=== PATIENT | female | born 1990 | race American Indian/Alaskan Native ===

== ENCOUNTER 2020-09-25 21:29 | Emergency (ER) | payer MEDICAID ==
[2020-09-25 22:26] VITALS: BP 123/78
--- NOTE | 2020-09-26 01:19 | Emergency Department Report ---
ED General Adult HPI - General Chief complaint: Skin/Abscess/Foreign Body Stated complaint: TAMPON STUCK IN VAGINA Time Seen by Provider: 09/26/20 01:07 Source: patient Mode of arrival: Ambulatory Limitations: No Limitations - History of Present Illness Initial comments: 30-year-old female patient presents emergency department with complaints of vaginal retained foreign body. Patient states she inserted a tampon 2 days ago and has been unable to retrieve it. She has not had sexual intercourse since inserting the tampon. Denies fever, chills, abdominal pain, vaginal bleeding, nausea, vomiting. Denies all other complaints at this time. - Related Data Allergies Allergy/AdvReac Type Severity Reaction Status Date / Time No Known Allergies Allergy Unverified 09/25/20 22:45 ED Review of Systems ROS: Stated complaint: TAMPON STUCK IN VAGINA Other details as noted in HPI Other: GENERAL: Negative for fever, chills, weight change, anorexia, fatigue. ENT: Negative for ear pain, difficulty hearing, sore throat, nasal congestion, epistaxis. CARDIOVASCULAR: Negative for chest pain, palpitations, lower extremity swelling. PULMONARY: Negative for cough, dyspnea, wheezing, orthopnea, cyanosis. GASTROINTESTINAL: Negative for abdominal pain, nausea, vomiting, diarrhea, constipation. GENITOURINARY: Positive for vaginal foreign body. MUSCULOSKELETAL: Negative for joint pain, joint swelling, myalgias, back pain, neck pain. NEUROLOGICAL: Negative for headache, seizure, syncope, paresthesias, weakness. INTEGUMENTARY: Negative for erythema, rash, diaphoresis, laceration, ecchymosis. HEMATOLOGICAL: Negative for hemoptysis, hematemesis, hematochezia, hematuria. PSYCHIATRIC: Negative for hallucinations, suicidal ideation, homicidal ideation, anxiety, depression. ED Past Medical Hx - Past Medical History Previous Medical History?: No - Surgical History Past Surgical History?: No - Social History Smoking Status: Current Every Day Smoker Substance Use Type: Alcohol ED Physical Exam - General Limitations: No Limitations - Other Other exam information: General: Awake, appropriately interactive, no acute distress. Neck: Supple. Full range of motion intact. Cardiovascular: Normal peripheral perfusion. Pulmonary: No respiratory distress. Patient is speaking normally without use of accessory muscles. Pelvic: Female dining room busser (KESHA Luz) present. Normal external inspection. Cervical os is closed. Retained tampon visualized. Skin: No apparent rashes or lesions. Neurological: No facial asymmetry. Speech is clear. Follows commands. Patient is alert and oriented. Musculoskeletal: Moves all four extremities spontaneously with normal range of motion. Psych: Cooperative. Appropriate mood and affect. ED Course Vital Signs 09/25/20 22:24 Temperature 98.5 F Pulse Rate 86 Respiratory 18 Rate Blood Pressure 123/78 O2 Sat by Pulse 100 Oximetry - Procedure Description Procedures done: Verbal consent was obtained from the patient. Patient was placed in the lithotomy position. Speculum was used for visualization. Retai cee foreign body (tampon) extracted from vaginal canal using plastic forceps. Patient tolerated procedure well without complications. Female dining room busser (KESHA Luz) present for duration of procedure. ED Medical Decision Making - Medical Decision Making Patient presents emergency department requesting removal of vaginal foreign body. Tampon removed without complications. See procedure note for details. No clinical evidence to suggest toxic shock syndrome warranting further diagnostic work-up/treatment on an emergent basis. Patient has been instructed to follow-up with her assembler for puller over machine and return to the emergency department for new or worsening symptoms. Patient expressed understanding is agreeable to plan of care. Repeat exam is unremarkable and benign. History, exam, diagnostic testing, and current condition do not suggest worrisome pathology to warrant further testing, continued ED treatment, admission, or surgical evaluation at this point. Given the low probability of a significant medical illness, it would be more likely to result in harm than benefit to perform further testing at this stage. Discussed findings, presumptive diagnosis, need for follow-up and specific signs/symptoms that should prompt immediate return to the emergency department. Instructions were explained in detail to the patient in addition to giving written discharge information. Patient expressed understanding and was given the opportunity to ask questions, all of which were satisfactorily answered prior to discharge home. Critical care attestation.: If time is entered above; I have spent that time in minutes in the direct care of this critically ill patient, excluding procedure time. ED Disposition Clinical Impression: Retained tampon Qualifiers: Encounter type: initial encounter Qualified Code(s): T19.2XXA - Foreign body in vulva and vagina, initial encounter Disposition: TO HOME OR SELFCARE Is pt being admited?: No Does the pt Need Aspirin: No Condition: Stable Instructions: Vaginal Foreign Body, [id number] Additional Instructions: Follow-up with your assembler for puller over machine this week. Call tomorrow to schedule an appointment. Return to the emergency department immediately for new or worsening symptoms. Referrals: JANENE NAVA MD [Staff Physician] - 3-5 Days Time of Disposition: 01:18
== END 2020-09-26 01:20 | disposition home or self-care (01) ==
LOC: ED 21:29
DX: T19.2XXA Foreign body in vulva and vagina, initial encounter (principal); F17.200 Nicotine dependence, unspecified, uncomplicated; X58.XXXA Exposure to other specified factors, initial encounter; Y93.89 Activity, other specified; Y92.89 Other specified places as the place of occurrence of the external cause; Y99.8 Other external cause status

== ENCOUNTER 2022-01-19 20:51 | Emergency (ER) | payer MEDICAID ==
[2022-01-19 21:26] VITALS: BP 117/79
--- NOTE | 2022-01-20 05:28 | Emergency Department Report ---
ED General Adult HPI - General Chief complaint: Urogenital-Female Stated complaint: TAMPON STUCK IN VAGINA Time Seen by Provider: 01/20/22 04:08 Source: patient Mode of arrival: Ambulatory Limitations: No Limitations - History of Present Illness Initial comments: 31-year-old female with no significant past medical history reports to the ER with reports of possible tampon stuck in her vagina. Patient denies fever patient denies weakness. No abdominal pain. Patient reports no STD concerns. - Related Data Allergies Allergy/AdvReac Type Severity Reaction Status Date / Time No Known Allergies Allergy Unverified 09/25/20 22:45 ED Review of Systems ROS: Stated complaint: TAMPON STUCK IN VAGINA Other details as noted in HPI Comment: All other systems reviewed and negative Genitourinary: other (Foreign body in vaginal area.) ED Past Medical Hx - Past Medical History Previous Medical History?: No - Social History Smoking Status: Current Every Day Smoker Substance Use Type: Alcohol ED Physical Exam - General Limitations: No Limitations General appearance: alert, in no apparent distress - Head Head exam: Present: atraumatic, normocephalic - Eye Eye exam: Present: normal appearance - ENT ENT exam: Present: mucous membranes moist - Neck Neck exam: Present: normal inspection - Respiratory Respiratory exam: Present: normal lung sounds bilaterally. Absent: respiratory distress - Cardiovascular Cardiovascular Exam: Present: regular rate, normal rhythm. Absent: systolic murmur, diastolic murmur, rubs, gallop - GI/Abdominal GI/Abdominal exam: Present: soft, normal bowel sounds - Speculum exam: Present: vaginal discharge (White and brown). Absent: foreign body - Extremities Exam Extremities exam: Present: normal inspection - Back Exam Back exam: Present: normal inspection - Neurological Exam Neurological exam: Present: alert, oriented X3 - Psychiatric Psychiatric exam: Present: normal affect, normal mood - Skin Skin exam: Present: warm, dry, intact, normal color. Absent: rash ED Course Vital Signs 01/19/22 21:24 Temperature 99.1 F Pulse Rate 84 Respiratory 18 Rate Blood Pressure 117/79 [Right] O2 Sat by Pulse 100 Oximetry ED Medical Decision Making - Medical Decision Making 31-year-old female with complaints of tampon stuck in vaginal area. On physical exam no tampon is noted in the vaginal area. No foreign body noted. Female plans examiner was present. Charge nurse. Discharge is noted white with a brown tent. Patient denies any STD concerns. Requesting no testing. Patient informed of vaginal exam findings. Patient informed to follow her primary care provider as well as [employer] [facility] as needed. Patient stable for discharge home. Patient asked again if she has any concerns for STD as she has a current discharge. No odor. Patient reports no concerns. Vital Signs 01/19/22 21:24 Temperature 99.1 F Pulse Rate 84 Respiratory 18 Rate Blood Pressure 117/79 [Right] O2 Sat by Pulse 100 Oximetry Critical care attestation.: If time is entered above; I have spent that time in minutes in the direct care of this critically ill patient, excluding procedure time. ED Disposition Clinical Impression: Vaginal discharge Disposition: LEFT WITHOUT BEING SEEN Is pt being admited?: No Condition: Stable Referrals: INDIA OROSCO MD [Primary Care Provider] - 3-5 Days
== END 2022-01-20 04:08 | disposition left against medical advice (07) ==
LOC: ED 20:51
DX: N89.8 Other specified noninflammatory disorders of vagina (principal)
CPT/HCPCS: 99281; 99282